=== PATIENT | male | born 1980 | race Caucasian/White ===

== ENCOUNTER 2024-03-04 21:08 | Emergency (ER) | payer OTHER ==
[~2024-03-04] VITALS: Ht 180.3 cm; Wt 77.1 kg
[2024-03-04 23:46] VITALS: BP 142/86; TEMP 98.5; O2SAT 98
== END 2024-03-04 23:46 | disposition home or self-care (01) ==
LOC: ER 21:16
DX: M25.562 Pain in left knee (principal)
CPT/HCPCS: 73564-TC

== ENCOUNTER 2024-03-10 12:32 | Emergency (ER) | payer OTHER ==
[~2024-03-10] VITALS: Ht 175.3 cm; Wt 72.6 kg
[2024-03-10] MEDS ORDERED: IBUP-1955 PO (14:20)
[2024-03-10 14:40] VITALS: BP 118/69; TEMP 98.6; O2SAT 99
== END 2024-03-10 14:41 | disposition home or self-care (01) ==
LOC: ER 12:45
DX: M25.562 Pain in left knee (principal)

== ENCOUNTER 2024-07-07 00:05 | Emergency (ER) | payer OTHER ==
[~2024-07-07] VITALS: Ht 172.7 cm; Wt 77.1 kg
[~2024-07-07 00:05] MED LIST: IBUP-1955 PO
[2024-07-07] MEDS ORDERED: KETOROLAC TROMETHAMINE INJ 30 MG/ML VIAL ONE (03:41)
[2024-07-07] MEDS: KETOROLAC TROMETHAMINE INJ 30 MG/ML VIAL IM ONE (03:43)
[2024-07-07] MEDS ORDERED: AMOX-430 PO (04:45)
[2024-07-07] MEDS ORDERED: NEOM10DR11 RIGHT EAR (04:45)
[2024-07-07 04:51] VITALS: BP 121/77; TEMP 98; O2SAT 97
== END 2024-07-07 04:52 | disposition home or self-care (01) ==
LOC: ER 00:08
DX: H66.91 Otitis media, unspecified, right ear (principal); H61.23 Impacted cerumen, bilateral
CPT/HCPCS: 99283; 96372; J1885